=== PATIENT | female | born 1940 | race Caucasian/White ===

== ENCOUNTER 2022-03-01 07:15 | Day surgery (SDC) | payer MEDICARE, OTHER ==
[~2022-03-01] VITALS: Ht 162.6 cm; Wt 70.5 kg
[~2022-03-01 07:15] MED LIST: B-100 COMPLEX100 MG PO; BISOPROLOL FUMAR5 MG PO; CALCIUM 600 MG1 EA10 PO; COSOPT EYE DROP10 ML OD; DICLOFENAC SOD100 G1 TOP; FISH OIL 1,001000 MG PO; FLAXSEED OIL1000 M1 PO; LATANOPROST2.5 ML OPTH; LIPITOR10 MG PO; LOSARTAN-HCTZ1 EACH PO; MAGNESIUM250 M1 PO; TIMOLOL MALEATE5 M2 OP; VITAMIN B-121000 MC4 SL; VITAMIN C 500500 M1 PO; VITAMIN D350 MC3 PO
--- NOTE | 2022-03-01 08:38 | NUR ---
PT ALERT, ORIENTED AND SUPPORTED BY HER G.DAUGHTER USAMA. PT IS PLEASANT, SEEMS PREPARED. USAMA WITH REMAIN FOR DC. PT REQUESTED PRAYER, WILL FOLLOW
[2022-03-01] MEDS ORDERED: DORZOLAMIDE 2%10 ML OP (09:03)
--- NOTE | 2022-03-01 10:20 | NUR ---
03/01/22 Edouard0 Shannan Ugarte 1016- PT ARRIVES TO PACU NONAROUSABLE TO STIMULI. RESP EVEN AND UNLABORED. OXYGEN SAT MID TO HIGH 90'S ON 2L VIA NC. PT'S RIGHT HAND ELEVATED AND ICE PACK APPLIED.
[2022-03-01] MEDS ORDERED: TRAMADOL HCL50 MG PO (10:34)
--- NOTE | 2022-03-04 07:05 | OR ---
[facility] [address], [place] [address] Signed DATE OF OPERATION: 03/01/2022 SURGEON: Leilani Woodruff MD PREOPERATIVE DIAGNOSIS: Carpal tunnel syndrome, right. POSTOPERATIVE DIAGNOSIS: Carpal tunnel syndrome, right. PROCEDURE PERFORMED: Carpal tunnel release, right. SHELLFISH DREDGE OPERATOR: None. ANESTHESIA: Jovan block. TOURNIQUET TIME: 14 minutes. BRIEF HISTORY: Valerie is an 81-year-old female with progressive worsening of carpal tunnel type symptoms, this was confirmed with nerve conduction studies. Risks and benefits of the operative treatment discussed with her and she elected to proceed. DESCRIPTION OF PROCEDURE: Once consent was obtained, she was taken to the operating room. After adequate anesthesia, she was left on the day surgery bed, hand table was brought in. The arm was prepped and draped in a standard sterile fashion after [place] block was established. The carpal tunnel was approached through a 1.5 cm incision in the distal wrist crease, carried through the skin and subcutaneous tissue. No palmaris longus was identified. The transverse carpal ligament was dissected free of overlying soft tissue and was released proximally a centimeter. There was a small motor branch that was preserved and protected. The transverse carpal ligament was then dissected and released distally. It was quite thickened in the midportion being approximately 5-6 mm thick at its thickest point. This was palpated using a [place] and found to be completely released. The wound was copiously irrigated with normal saline, closed with 3-0 nylon. The operative site was injected with 7 mL of 0.25% Marcaine. The wound was dressed with bacitracin, Electronically Signed By: LEILANI WOODRUFF MD 03/04/22 0705 PATIENT NAME: VALERIE SAHU OPERATIVE REPORT DATE OF : 42 REPORT #: [id number] PHYSICIAN: LEILANI WOODRUFF MD PCP: DEBORAH COLEMAN MD REPORT IS CONFIDENTIAL AND NOT TO BE RELEASED WITHOUT AUTHORIZATION [facility] [address] [place] [address] [place], [place] [address] Signed Adaptic, 4 x 8's, and gauze. She tolerated the procedure well. All sponge, needle, and instrument counts were correct. Leilani Woodruff MD BA/MODL /[id number] Copies: ~ Electronically Signed By: LEILANI WOODRUFF MD 03/04/22 0705 PATIENT NAME: VALERIE SAHU OPERATIVE REPORT DATE OF : [birth year] REPORT #: [id number] PHYSICIAN: LEILANI WOODRUFF MD PCP: DEBORAH COLEMAN MD REPORT IS CONFIDENTIAL AND NOT TO BE RELEASED WITHOUT AUTHORIZATION
== END 2022-03-01 11:24 | disposition home or self-care (01) ==
LOC: DS 07:15
PROVIDERS: ATTEND Specialist
PROC: 01N50ZZ Release Median Nerve, Open Approach (ICD-10-PCS; principal; 2022-03-01 09:55)
DX: G56.01 Carpal tunnel syndrome, right upper limb (principal)
CPT/HCPCS: J0690; J2001; J2250; J2704; J7121

== ENCOUNTER 2023-01-01 14:41 | Emergency (ER) | payer MEDICARE, OTHER ==
[~2023-01-01] VITALS: Ht 162.6 cm; Wt 69.5 kg
[~2023-01-01 14:41] MED LIST changes: +DORZOLAMIDE 2%10 ML OP; +TRAMADOL HCL50 MG PO
== END 2023-01-01 17:17 | disposition home or self-care (01) ==
LOC: ED 14:41
DX: R41.0 Disorientation, unspecified (principal); I10 Essential (primary) hypertension; Z88.0 Allergy status to penicillin; Z79.899 Other long term (current) drug therapy
CPT/HCPCS: 36415; 70450; 80053; 81001; 84484; 85025; 99285-25

== ENCOUNTER 2024-09-23 12:05 | Inpatient (IN) | payer MEDICARE, OTHER ==
[~2024-09-23] VITALS: Ht 162.6 cm; Wt 66.4 kg
[~2024-09-23 12:05] MED LIST changes: -LATANOPROST2.5 ML OPTH; +LATANOPROST2.5 ML OS
[2024-09-23] MEDS ORDERED: ondansetron HCL 4 MG/2 ML VIAL IV ONE (13:30)
[2024-09-23 13:39] LABS: BASOPHILS 0.4 % (0-2); HEMATOCRIT 43.3 % (35.0-50.0); HEMOGLOBIN 14.3 g/dL (12.0-18.0); MCH 29.5 (27-36); MCV 89.6 fl (81-99); MONOCYTES 9.4 % (0-12); NEUTROPHILS 82.2 % (39-80); PLATELET COUNT 202 K/uL (140-440); RBC 4.83 M/ul (4.3-5.7); RDW 13.3 (10.5-15.0)
[2024-09-23 13:58] LABS: ALBUMIN 3.5 g/dL (3.4-5.0); ALBUMIN/GLOBULIN RATIO 0.9 (1.1-2.4); ANION GAP 14.2 (7-21); BILIRUBIN, TOTAL 0.7 ng/dL (0.2-1.0); BUN/CREATININE RATIO 13.76 (6.0-28.6); CALCIUM 9.8 mg/dL (8.5-10.1); CREATININE, SERUM 1.09 mg/dL (0.55-1.02); POTASSIUM 3.2 mmol/L (3.5-5.1); PROTEIN, TOTAL 7.4 g/dL (6.4-8.2)
[2024-09-23] MEDS ORDERED: SODIUM CHLORIDE 0.9% 1,000 ML IV ONE (14:00)
[2024-09-23] MEDS ORDERED: metroNIDAZOLE/SODIUM CHLORIDE 500 MG/100 ML PIGGYBACK IV ONE (15:00)
[2024-09-23] MEDS ORDERED: CEFEPIME HCL/D5W 2 GM/100 ML PIGGYBACK IV ONE (15:00)
[2024-09-23 15:05] LABS: BILIRUBIN, URINE NEGATIVE (negative); BLOOD/HGB, URINE TRACE-I (Negative); KETONE, URINE SMALL (Negative); LEUK ESTERASE, URINE SMALL (negative); NITRITE, URINE NEGATIVE (negative); PH, URINE 5.5 (5-7)
[2024-09-23 15:14] LABS: BACTERIA, URINE 2+ /hpf (negative); CASTS, URINE NONE SEEN \\lpf; COLLECTION TYPE, URINE CLEAN CATCH; CRYSTALS, URINE NONE SEEN (0-1+); EPITHELIAL CELLS, URINE SQUAMOUS 3+ /lpf (0-1+); RED BLOOD CELLS, URINE 0-1 /hpf (0-5); REFLEX CULTURE, URINE No (No); WHITE BLOOD CELLS, URINE >50 /HPF (0-5)
--- NOTE | 2024-09-23 16:16 | NUR ---
REPORT RECEIVED FROM SENA ROGERS IN THE ER. PT IS TRANSPORTED VIA STRETCHER TO MED/SURG FLOOR AND TRANSFERS HERSELF INTO THE BED AT THIS TIME. VS AND WT OBTAINED AND RECORDED. IV FLUSHES WNL, IV ABX INFUSING AT THIS TIME. CALL LIGHT IN REACH.
[2024-09-23 16:19] VITALS: BP 142/54; BP 152/54
[2024-09-23] MEDS ORDERED: SEVOFLURANE 250 ML BTL INH ONE (16:21)
--- NOTE | 2024-09-23 16:30 | NUR ---
MD IN ROOM WITH PATIENT DISCUSSING CONSENT AND SURGICAL PROCEDURE.
[2024-09-23] MEDS ORDERED: PROCHLORPERAZINE EDISYLATE 10 MG/2 ML VIAL IV PRN (16:45)
[2024-09-23] MEDS ORDERED: ondansetron HCL 4 MG/2 ML VIAL IV PRN ×3 (16:45→19:00)
[2024-09-23] MEDS ORDERED: PANTOPRAZOLE SODIUM 40 MG/10 ML VIAL IV SCH (16:45)
[2024-09-23] MEDS ORDERED: HYDROmorphone HCL 1 MG/ML SYR IV PRN ×2 (16:45→17:00)
--- NOTE | 2024-09-23 16:45 | NUR ---
PATIENT ALERT AND ORIENTED TO PERSON PLACE, TIME AND LOCATIONS. PATIENT WITH C/O PAIN TO RLQ. REPORTS PAIN IS " OKAY AT THIS TIME." RATES PAIN 5/10. LUNGS CTA, HEART TONES REGUALR.BILATERAL PULSES STRONG TO UPPER AND LOWER EXTREMITIES. PATIENT BOWEL TONES HYPOACTIVE. ABD SLIGHTLY DISTENDED, TENDER TO TOUCH. REPORTS LAST BM WAS 09/22/24. ADMISSION COMPLETED.
[2024-09-23] MEDS ORDERED: ENOXAPARIN SODIUM 40 MG/0.4 ML SYR SUB-Q SCH (16:46)
--- NOTE | 2024-09-23 16:56 | NUR ---
JUST GOT DONE DOING A SURGICAL WIPE DOWN ON PATIENT. NEW GOWN AND SOCKS AND SCDS ON.
[2024-09-23] MEDS ORDERED: ACETAMINOPHEN 325 MG TAB PO PRN (17:00)
[2024-09-23] MEDS ORDERED: LACTATED RINGER'S 1,000 ML IV SCH ×2 (17:00)
[2024-09-23] MEDS ORDERED: ATORVASTATIN CA20 MG PO (17:07)
[2024-09-23] MEDS ORDERED: DORZOLAMIDE-TIM10 ML OS (17:08)
[2024-09-23] MEDS ORDERED: LIDOCAINE HCL 1% 30 ML SDV ONE (17:24)
[2024-09-23] MEDS ORDERED: propofoL 200 MG/20 ML VIAL ONE (17:24)
[2024-09-23] MEDS ORDERED: ondansetron HCL 4 MG/2 ML VIAL ONE ×2 (17:24→18:30)
[2024-09-23] MEDS ORDERED: ROCURONIUM BROMIDE 50 MG/5 ML SYR ONE (17:24)
[2024-09-23] MEDS ORDERED: LIDOCAINE HCL 2% 5 ML SDV ONE (17:24)
--- NOTE | 2024-09-23 17:26 | NUR ---
OR NURSE ON UNIT TO TAKE PATIENT TO PREOP.
[2024-09-23] MEDS ORDERED: fentaNYL citrate 100 MCG/2 ML VIAL ONE (17:28)
[2024-09-23] MEDS ORDERED: ACETAMINOPHEN 1,000 MG/100 ML VIAL ONE (17:39)
[2024-09-23] MEDS ORDERED: SODIUM CHLORIDE 0.9% 20 ML IV ONE (17:42)
[2024-09-23] MEDS ORDERED: ePHEDrine sulfate 50 MG/ML AMP ONE (17:42)
[2024-09-23] MEDS ORDERED: SUGAMMADEX SODIUM 200 MG/2 ML ML ONE (18:22)
[2024-09-23] MEDS ORDERED: DEXAMETHASONE SOD PHOS 4 MG/ML VIAL ONE (18:30)
--- NOTE | 2024-09-23 18:54 | NUR ---
09/23/241853 Lydia Orozco 1846-PT ARRIVES TO PACU RESTING SUPINE, PT NOT RESPONSIVE TO NOXIOUS STIMULI, VSS ON 6L VIA MASK, OPA IN PLACE, RR EVEN AND UNLABORED.
[2024-09-23] MEDS ORDERED: DEXTROSE 5% - LACTATED RINGERS 1,000 ML IV SCH (19:00)
[2024-09-23] MEDS ORDERED: IBLOOD GLUCOSE TEST STRIP 1 EA TEST VI PRN (19:00)
[2024-09-23] MEDS ORDERED: NALOXONE HCL 0.4 MG SYR IV PRN (19:00)
[2024-09-23] MEDS ORDERED: fentaNYL citrate 50 MCG/ML SDV IV PRN (19:00)
[2024-09-23] MEDS ORDERED: OXYCODONE HCL 5 MG TAB PO PRN (19:00)
--- NOTE | 2024-09-23 19:05 | NUR ---
REPORT RECEIVED FROM FARZANA SHETTY. pt STILL IN PACU AT THIS TIME. BOARD UPDATED.
[2024-09-23 19:24] VITALS: BP 127/57
--- NOTE | 2024-09-23 19:30 | NUR ---
pt ARRIVED TO THE FLOOR VIA STRETCHER. REPORT RECEIVED FROM SABRINA SHETTY. pt RESTING COMFORTABLY IN THE BED. pt DENIES ANY PAIN AT THIS TIME. VSS. LAP SITES X3 DRY AND INTACT. WATER REFRESHED. pt DENIES ANY NEEDS AT THIS TIME. CALL LIGHT WITHIN REACH.
[2024-09-23] MEDS ORDERED: METOPROLOL TARTRATE 5 MG/5 ML VIAL IV SCH (20:00)
[2024-09-23 20:44] VITALS: BP 121/72
--- NOTE | 2024-09-23 20:48 | NUR ---
post-op vss, pt awake and resting in bed. on ra, rr even and unlabored, no distress noted. pt and visitor denies needs or concerns. call light in reach.
[2024-09-23 21:29] VITALS: BP 131/54
--- NOTE | 2024-09-23 21:30 | NUR ---
POST OP VS DONE. pt STILL DENIES ANY NEEDS AND PAIN AT THIS TIME. ICE PACK PROVIDED FOR pt. CALL LIGHT WITHIN REACH.
[2024-09-23 22:29] VITALS: BP 126/59
--- NOTE | 2024-09-23 22:30 | NUR ---
ASSESSMENT AND VITAL SIGNS DONE. pt BOOSTED IN THE BED. CPOX ON. SCD'S ON. pt DENIES ANY PAIN OR NEEDS AT THIS TIME. CALL LIGHT WITHIN REACH. NO OTHER NEEDS AT THIS TIME.
[2024-09-23 22:57] VITALS: BP 126/59
[2024-09-24] VITALS (9 sets, daily range): BP systolic 112–149; BP diastolic 55–78
--- NOTE | 2024-09-24 00:56 | NUR ---
pt RESTING IN THE BED WITH EYES CLOSED. RR EVEN AND UNLABORED. CALL LIGHT WITHIN REACH.
--- NOTE | 2024-09-24 01:45 | NUR ---
ASSESSMENT AND VITAL SIGNS DONE. pt SBA TO THE BSC. PRN AND SCHEDULED MEDS ADMINISTERED. pt DENIES ANY OTHER NEEDS AT THIS TIME. CALL LIGHT WITHIN REACH. JELLO PROVIDED. WATER REFRESHED.
--- NOTE | 2024-09-24 03:50 | NUR ---
pt RESTING IN THE BED. pt IV BEEPING. NEW IVF BAG HUNG. pt DENIES ANY NEEDS AT THIS TIME. CALL LIGHT WITHIN REACH.
--- NOTE | 2024-09-24 05:30 | NUR ---
pt CALLED TO GO TO THE BR. pt SBA TO THE BR WITH IV POLE. VITAL SIGNS AND ASSESSMENT DONE. ICE PACK PROVIDED. PRN PAIN MEDS ADMINISTERED. pt DENIES ANY OTHER NEEDS AT THIS TIME. CALL LIGHT WITHIN REACH.
[2024-09-24 05:46] LABS: BASOPHILS 0.7 % (0-2); HEMATOCRIT 39.1 % (35.0-50.0); LYMPHOCYTES 6.6 % (24-44); MCH 29.6 (27-36); MCHC 33.2 g/dl (30-36); MONOCYTES 6.1 % (0-12); NEUTROPHILS 86.6 % (39-80); PLATELET COUNT 171 K/uL (140-440); RBC 4.39 M/ul (4.3-5.7); RDW 13.6 (10.5-15.0)
[2024-09-24 06:01] LABS: ANION GAP 11.3 (7-21); BUN/CREATININE RATIO 12.26 (6.0-28.6); CALCIUM 8.8 mg/dL (8.5-10.1); CREATININE, SERUM 1.06 mg/dL (0.55-1.02); MAGNESIUM 1.8 mg/dL (1.8-2.4); PHOSPHORUS, INORGANIC 2.3 mg/dL (2.5-4.9); POTASSIUM 3.3 mmol/L (3.5-5.1)
--- NOTE | 2024-09-24 07:00 | OR ---
[facility] [address], [place] [address] Signed DATE OF OPERATION: 09/23/2024 SURGEON: Lissett Nichols MD PREOPERATIVE DIAGNOSIS: Acute appendicitis. POSTOPERATIVE DIAGNOSIS: Necrotic appendicitis. OPERATIVE PROCEDURE: Laparoscopic appendectomy. ESTIMATED BLOOD LOSS: None. INDICATIONS: Valerie is an 83-year-old female who for two days now has had increasing right lower quadrant abdominal pain. She finally came to the emergency room for evaluation. Vital signs are stable. She is tender in the right lower quadrant. White count is elevated. CT scan and pelvis confirmed her appendicitis with a fecalith and some mild periappendiceal stranding. She has cholelithiasis and also had a right adnexal cyst about 7.1 x 5.1 cm. The pelvic ultrasound confirmed an 8.6 cm cyst with a 1.5 cm mural nodule. Of course, it was recommended that Ness follow up with our garment manufacturing supervisor. I did talk with our garment manufacturing supervisor, Dr. KEMI Damon, on-call and he is extremely busy tonight with a delivery as well as a ruptured ectopic . He will be seeing her in due time in the clinic. In the meantime, she had received cefepime and Flagyl, was admitted to my service. I met with Valerie in the hospital. We discussed the location of function of the appendix relative to her above findings. We discussed laparoscopic versus open appendectomy. She is very aware of the right ovarian cyst. She understands that we need to take care of infection first and she can deal with the ovarian cyst later. She understands expected intraop and postop course. There is risk including, but not limited to bleeding, infection, scarring, change in contour of the skin, damage to bowel, appendiceal stump leak, postoperative intraabdominal abscess, incisional hernias and other unforeseen comorbidities. She had expressed understanding and wished to proceed. DESCRIPTION OF PROCEDURE: Valerie was taken into our operating room and placed in the supine position under general endotracheal tube anesthesia. She was already on preoperative cefepime and Flagyl along Electronically Signed By: LISSETT NICHOLS MD 09/24/24 0700 PATIENT NAME: VALERIE SAHU OPERATIVE REPORT DATE OF : 42 REPORT #: [id number] PHYSICIAN: LISSETT NICHOLS MD PCP: AZIZA TRAN MD REPORT IS CONFIDENTIAL AND NOT TO BE RELEASED WITHOUT AUTHORIZATION [facility] [address], [place] [address] Signed with subcutaneous Lovenox. SCDs were utilized. A Pantoja catheter was inserted with return of clear yellow urine without difficulty. She was prepped and draped in the usual sterile fashion. Our trocars were placed in their standard positions under direct visualization of camera without difficulty. It took just a minute to bluntly sweep the terminal ileum away from the appendix. We cleared off the base of the appendix bluntly and with the cautery. The linear stapler was used to divide the appendix from the cecum. We then used our vascular load on the mesoappendix to separate the appendix completely. There was good hemostasis on both staple lines. The appendix was placed into an EndoCatch bag and taken out through the right subcostal trocar site. We briefly examined the right lower quadrant and we pushed the bowel side and we never did see this right ovarian adnexal mass. After this, we used our laparoscopic suturing device to pass 0-Vicryl suture x2 on either side of the fascia of the right subcostal trocar site. These were tied down to close this fascia primarily. After this, the gas was allowed to escape and her remaining two trocars were removed. We closed the fascia of the supraumbilical trocar site with interrupted afpaoo-wm-oesow and simple 0-Vicryl sutures. Local anesthetic was injected into all three trocar sites. Each trocar site was irrigated and suctioned out until clear. We closed the skin and dermis of each trocar site with interrupted 3-0 subcuticular Monocryl sutures. Dry gauze and tape was applied to all three incisions. Her Pantoja catheter was removed without difficulty. She was awakened from anesthesia, extubated in the OR, and taken to recovery room in stable condition. Lissett Nichols MD ALB/MODL /[id number] cc: Aziza Tran MD Patient chart MD Arsalan Thrasher DO Electronically Signed By: LISSETT NICHOLS MD 09/24/24 0700 PATIENT NAME: VALERIE SAHU OPERATIVE REPORT DATE OF : 42 REPORT #: [id number] PHYSICIAN: LISSETT NICHOLS MD PCP: AZIZA TRAN MD REPORT IS CONFIDENTIAL AND NOT TO BE RELEASED WITHOUT AUTHORIZATION [address] [address] Signed Copies: AZIZA TRAN MD, ANDREW L MD WARD, JAMES (KEMI) DO ~ Electronically Signed By: LISSETT NICHOLS MD 09/24/24 0700 PATIENT NAME: VALERIE SAHU OPERATIVE REPORT DATE OF : 42 REPORT #: [id number] PHYSICIAN: LISSETT NICHOLS MD PCP: AZIZA TRAN MD REPORT IS CONFIDENTIAL AND NOT TO BE RELEASED WITHOUT AUTHORIZATION
--- NOTE | 2024-09-24 07:00 | CONS ---
[facility] [address], [place] [address] Signed DATE OF CONSULTATION: 09/23/2024 CHIEF COMPLAINT: Right lower quadrant abdominal pain. HISTORY OF PRESENT ILLNESS: Valerie is an 83-year-old female who still lives at home with her . She is very independent and at her ideal body weight. She still drives around town. Two days ago, she started to develop right lower quadrant abdominal pain. It is getting progressively worse. She finally came to the emergency room for evaluation. She is tender in the right lower quadrant with stable vital signs. White count was elevated. A CT scan of abdomen and pelvis shows her thickened inflamed appendix with an appendicolith with some mild periappendiceal stranding. She also has cholelithiasis and right adnexal cyst about 7.1 x 5.1 cm. An ultrasound was done. She has an 8.6 cm cyst with a mural nodule about 1.5 cm. I have been asked to admit her as a general surgeon on-call. In the meantime, she received cefepime and Flagyl. Her is not here in the hospital currently, but her granddaughter is a nurse and headed here from about an hour away. PAST MEDICAL HISTORY: Hypertension, glaucoma, and hypercholesterolemia. PAST SURGICAL HISTORY: None. SOCIAL HISTORY: She does not smoke or drink. Dr. Tran is her primary care provider. She prefers the [facility]. Her is Torin at [phone]. They have a house and she drives. She had two children and one has . Her other child lives out on the [facility] about 5 hours away. FAMILY HISTORY: None. REVIEW OF SYSTEMS: She had 10 systems reviewed and there were no new findings. ALLERGIES: Penicillin causes hives. MEDICATIONS: Latanoprost eyedrops, timolol eye drops, fish oil, flaxseed oil, vitamin C, vitamin B12, magnesium, calcium, vitamin D, atorvastatin, bisoprolol, losartan, hydrochlorothiazide, diclofenac, dorzolamide eye drops. Electronically Signed By: LISSETT NICHOLS MD 09/24/24 0700 PATIENT NAME: VALERIE SAHU CONSULTATION DATE OF : 42 REPORT #: [id number] PHYSICIAN: LISSETT NICHOLS MD PCP: AZIZA TRAN MD REPORT IS CONFIDENTIAL AND NOT TO BE RELEASED WITHOUT AUTHORIZATION [facility] [address], [place] [address] Signed PHYSICAL EXAMINATION: VITAL SIGNS: Blood pressure is 133/60, heart rate 70, and respiratory rate 18, temperature 98.7. She is 94% to 100% on room air. She is 5 feet 4 inches and 66 kg with a body mass index 25. GENERAL: Valerie is an 83-year-old female who appears healthy and at her stated age. She is quite bright and very cooperative. She is in no acute distress. She does not appear to be systemically ill or toxic. LUNGS: Clear to auscultation bilaterally. HEART: Regular rate and rhythm without murmurs. ABDOMEN: Soft, flat but she is tender in the right lower quadrant. I cannot palpate a mass. LABORATORY DATA: Her white blood count 15.7, hemoglobin 14, neutrophils 82. Potassium slightly low at 3.2, but creatinine 1.09. Liver function tests are negative. Albumin is 3.5, lipase is 22. RADIOGRAPHIC STUDIES: CT scan of abdomen and pelvis is reviewed and you can see her cholelithiasis along with the stone in the appendix. The appendix is little thickened. There is some mild periappendiceal stranding and then down further in the pelvis you can see the right adnexal cyst. The ultrasound confirms a right adnexal cyst with a 1.5 cm mural nodule. ASSESSMENT AND PLAN: Valerie is an 83-year-old female who presents with acute appendicitis. I explained to Valerie the above findings. We reviewed the location of function of the appendix. We discussed laparoscopic versus open appendectomy. She understands expected intraop and postop course. There is risk of surgery including, but not limited to bleeding, infection, scarring, change in contour of the skin, damage to bowel, appendiceal stump leak, postoperative intraabdominal abscess, incisional hernias and other unforeseen comorbidities. In addition, she is aware of this right adnexal cyst. Our on-call coremaker supervisor, Dr. KEMI Damon, is aware of the cyst as well. Unfortunately, he is involved with a delivery right now and not able to assess the patient. Nevertheless, it is vance to go ahead and remove the appendix and the cyst, the ovarian cyst can be dealt with at a later time. I have reviewed this with Valerie. She has expressed understanding and agrees above plan. Lissett Nichols MD Electronically Signed By: LISSETT NICHOLS MD 09/24/24 0700 PATIENT NAME: VALERIE SAHU CONSULTATION DATE OF : 42 REPORT #: [id number] PHYSICIAN: LISSETT NICHOLS MD PCP: AZIZA TRAN MD REPORT IS CONFIDENTIAL AND NOT TO BE RELEASED WITHOUT AUTHORIZATION [address] [place] [address] Signed ALB/MODL /[id number] cc: Aziza Tran MD Patient chart MD Arsalan Thrasher DO Copies: AZIZA TRAN MD, ANDREW L MD WARD, JAMES (KEMI) ~ Electronically Signed By: LISSETT NICHOLS MD 09/24/24 0700 PATIENT NAME: VALERIE SAHU CONSULTATION DATE OF : 42 REPORT #: [id number] PHYSICIAN: LISSETT NICHOLS MD PCP: AZIZA TRAN MD REPORT IS CONFIDENTIAL AND NOT TO BE RELEASED WITHOUT AUTHORIZATION
--- NOTE | 2024-09-24 07:01 | NUR ---
Pt report received from SENA Stephens. Pt is resting supine in bed, awake A&O, television on, daughter in room. Pt denies any needs at this time. White board updated. Side rails up x4, call light in reach.
--- NOTE | 2024-09-24 07:08 | NUR ---
Dr. Galloway in with pt and removed dressings to abdomen.
[2024-09-24] MEDS ORDERED: POTASSIUM PHOSPHATE 30 MMOL in DEXTROSE 5% 500 ML IV ONE (07:15)
--- NOTE | 2024-09-24 07:28 | NUR ---
UR CLINICAL REVIEW: 2MN TRUPTI, MEETS INPT FOR ACUTE NECROTIC APPENDICITIS MEDICARE INPT 09/23/24 @ 1649 ORDER MATCHES REG NO AUTH REQUIRED PER MEDICARE RULES PLAN TO DC TO HOME.
[2024-09-24] MEDS ORDERED: CEFEPIME HCL/D5W 1 GM/100 ML PIGGYBACK IV SCH (08:00)
[2024-09-24] MEDS ORDERED: THERA TEARS15 ML OU (08:44)
[2024-09-24] MEDS ORDERED: COLACE100 MG PO (08:44)
--- NOTE | 2024-09-24 08:45 | NUR ---
MED REC COMPLETE
[2024-09-24] MEDS ORDERED: MAGNESIUM SULFATE 2 GM/50 ML BAG IV ONE (09:00)
[2024-09-24] MEDS ORDERED: PANTOPRAZOLE SODIUM 40 MG TABEC PO SCH (09:00)
[2024-09-24] MEDS ORDERED: CEFEPIME HCL/D5W 2 GM/100 ML PIGGYBACK IV SCH (09:00)
[2024-09-24] MEDS ORDERED: metroNIDAZOLE/SODIUM CHLORIDE 500 MG/100 ML PIGGYBACK IV SCH (09:00)
[2024-09-24] MEDS ORDERED: DOCUSATE SODIUM 100 MG CAP PO SCH (09:00)
[2024-09-24] MEDS ORDERED: POLYETHYLENE GLYCOL 3350 1 PACKET PO SCH (09:00)
--- NOTE | 2024-09-24 10:27 | NUR ---
TAKING OFF RT SERVICE. PLEASE CALL IF RT CONCERNS OR O2 USE.
--- NOTE | 2024-09-24 11:45 | NUR ---
PC to pharmacy, spoke with Kris. Advised that K+Phos is not compatible with MgSO4. 2nd IV site obtained in left wrist, first attempt successful, pt tolerated well, good blood return, flushes well, no leaking, redness, swelling noted, no c/o pain or discomfort. IV MgSO4 on IVP at ordered rate per emar. Will run K+phos after its completion. IV ABX in original IV site, not compatible with Mg or K+.
--- NOTE | 2024-09-24 12:04 | EKG ---
[facility] [address] [facility] [place], [place] [address] Signed Normal sinus rhythm Possible Left atrial enlargement Septal infarct , age undetermined Abnormal ECG No previous ECGs available Confirmed by Gail Gandhi MD ([id number]) on 09/24/2024 12:04:51 PM Electronically Signed By: GAIL GANDHI 09/24/24 1204 PATIENT NAME: LESIA SAHU Electrocardiogram DATE OF : 42 PHYSICIAN: GAIL GANDHI REPORT #: [id number] REPORT IS CONFIDENTIAL AND NOT TO BE RELEASED WITHOUT AUTHORIZATION
--- NOTE | 2024-09-24 13:04 | NUR ---
PATIENT ALERT AND ORIENTED IN BED. GRANDDAUGHTER AT BEDSIDE. PATIENT LIVES IN SINGLE LEVEL HOME WITH 2-3 STEPS TO GET INSIDE, WITH HER . SHE USES STEPS WITHOUT DIFFICULTY. PATIENT HAS NO DME. SHE DRIVES AT [place]. NO FINANCIAL CONCERNS. UTILITIES ARE PAID. SHE IS ABLE TO PAY FOR HER FOOD AND MEDICATION WITHOUT DIFFICULTIES. GRANDDAUGHTER ASKS IF PATIENT WILL QUALIFY FOR HOME HEALTH. INFORMED HER PATIENT IS ABLE TO LEAVE HOME, SO SHE DOES NOT QUALIFY. CONCERNED ABOUT PATIENT BEING ABLE TO CARE FOR SELF AT HOME FOR A FEW DAYS. PATIENT STATES SHE WILL BE FINE. CURRENTLY SHE IS ABLE TO GET UP AND MOVE AROUND HER ROOM WITH MINIMAL ASSISTANCE. PATIENT CURRENTLY DENIES CM NEEDS AND PLANS TO RETURN HOME WITH HER AT DISCHARGE.
--- NOTE | 2024-09-24 16:13 | NUR ---
Pt's granddaughter advised that the pt is feeling "loopy" and suggested she only take tylenol for pain or discomfort. She states that the pt reports increased pain with movement still, but feels loopy, so she thinks it would be better for her not to take oxycodone. Pt currently reports her pain is 5 out of 10 in her RLQ that radiates to her left side also. Pain does settle when she stops moving around. IVF running on pumps. Pt medicated with PO Tylenol at this time. IV cefepime, IV K+Phos running on separate pumps into separate IV sites. Pt has no c/o pain, no swelling or leaking noted at sites. No redness. Warm blanket and iced water provided at pt's request. Encouraged pt to use call light if she needs anything. Also discussed pt showering after dinner if she is feeling less woozy.
--- NOTE | 2024-09-24 16:22 | NUR ---
Last notes from Dr. Tran's office requested today. Also, pharmacist, Ceasar, reviewed pt's med list this shift.
--- NOTE | 2024-09-24 17:38 | NUR ---
RESPONDED TO CALL LIGHT, UPON ENTERING THE ROOM, PT GRANDDAUGHTER NOTIFIED ME THAT PT WAS STANDING WHEN SHE CAME IN THE ROOM WITH WATER SPILLED ON THE FLOOR AND PT STATING SHE WAS CONFUSED. CLEANED UP SPILL AND GOT PT BACK TO BED. SET BED ALARM FOR PT SAFETY. PT STATED NO FURTHER NEEDS AT THIS TIME. PERSONAL BELONGINGS AND CALL LIGHT ARE WITHIN REACH. NOTIFIED PRIMARY RNKEN.
--- NOTE | 2024-09-24 19:05 | NUR ---
REPORT RECEIVED FROM KEN SHETTY. pt RESTING IN THE BED. pt DENIES ANY OTHER NEEDS AT THIS TIME. CALL LIGHT WITHIN REACH.
--- NOTE | 2024-09-24 20:45 | NUR ---
ASSESSMENT AND VITAL SIGNS DONE. LAP SITES X3 CDI. pt RESTING IN THE BED. SCHEDULED MEDS ADMINISTERED. IV ABX INFUSING. IV ASSESSED, WNL. pt DENIES ANY NEEDS AT THIS TIME. CALL LIGHT WITHIN REACH. SCD'S ON.
--- NOTE | 2024-09-24 22:10 | NUR ---
pt STATES SHE IS FEELING NO PAIN AT THIS TIME. IV ABX INFUSING PER ORDER. pt DENIES ANY OTHER NEEDS AT THIS TIME. CALL LIGHT WITHIN REACH.
--- NOTE | 2024-09-24 23:29 | NUR ---
BED ALARM ANSWERED. PT SITTING AT EDGE OF BED STATING THE NEED TO USE BATHROOM. ASPHALT RAKER 1PA TO BATHROOM. PT VOIDED AND ASSISTED BACK TO BED. OUTOUT MEASURED. PT STATES NO FURTHER NEEDS AT THIS TIME. CALL LIGHT WITHIN REACH AND BED ALARM ON.
[2024-09-25] VITALS (9 sets, daily range): BP systolic 144–173; BP diastolic 54–86
--- NOTE | 2024-09-25 01:45 | NUR ---
IN RM TO ADMINISTER SCHEDULED MEDS AND PRN PAIN MEDS. pt UP TO THE BR. SBA. pt BACK TO BED. pt DENIES ANY OTHER NEEDS AT THIS TIME. CALL LIGHT WITHIN REACH. BED ALARM ON.
--- NOTE | 2024-09-25 04:17 | NUR ---
pt CALLED TO GO TO THE BR. SBA. INCISIONS CDI. pt DENIES ANY OTHER NEEDS AT THIS TIME. CALL LIGHT WITHIN REACH.
[2024-09-25 05:26] LABS: BASOPHILS 0.4 % (0-2); HEMATOCRIT 40.4 % (35.0-50.0); HEMOGLOBIN 13.7 g/dL (12.0-18.0); LYMPHOCYTES 8.1 % (24-44); MCH 30.1 (27-36); MCHC 33.9 g/dl (30-36); MCV 88.7 fl (81-99); MONOCYTES 4.9 % (0-12); NEUTROPHILS 86.6 % (39-80); PLATELET COUNT 172 K/uL (140-440); RBC 4.55 M/ul (4.3-5.7); RDW 13.3 (10.5-15.0)
[2024-09-25 05:47] LABS: ANION GAP 10.4 (7-21); BUN/CREATININE RATIO 6.93 (6.0-28.6); CALCIUM 8.4 mg/dL (8.5-10.1); CREATININE, SERUM 1.01 mg/dL (0.55-1.02); MAGNESIUM 1.8 mg/dL (1.8-2.4); PHOSPHORUS, INORGANIC 1.8 mg/dL (2.5-4.9); POTASSIUM 3.4 mmol/L (3.5-5.1)
--- NOTE | 2024-09-25 07:11 | NUR ---
REPORT RECEIVED. PT SITTING IN BED WATCHING TV. CALL LIGHT WITHIN REACH AND NO REQUESTS AT THIS TIME.
--- NOTE | 2024-09-25 09:35 | NUR ---
PT UP IN CHAIR EATING BREAKFAST. PT C/O PAIN TO ABD 01/06, TYLENOL GIVEN PER ORDER. CALL LIGHT WITHIN REACH, WARM BLANKETS ALSO GIVEN PER REQUEST.
[2024-09-25] MEDS ORDERED: hydroCHLOROthiazide 25 MG TAB PO SCH (09:41)
[2024-09-25] MEDS ORDERED: LOSARTAN POTASSIUM 50 MG TAB PO SCH (09:41)
[2024-09-25] MEDS ORDERED: POTASSIUM CHLORIDE 10 MEQ TABCR PO SCH (09:42)
[2024-09-25] MEDS ORDERED: MAGNESIUM OXIDE 400 MG TABLET PO SCH (09:42)
--- NOTE | 2024-09-25 09:50 | NUR ---
ASSESSMENT COMPLETE. PT USING IS HOURLY. NO REQUESTS AT THIS TIME, CALL LIGHT WITHIN REACH.
--- NOTE | 2024-09-25 10:44 | NUR ---
PATIENTUP TO BR WITH SBA. PATIENT TOLERATED WELL. PATIENT BACK IN CHAIR VISITING WITH . CALL LIGHT WITHIN REACH.
--- NOTE | 2024-09-25 11:16 | NUR ---
PT AMBULATED IN THE [place] ON THE UNIT X2. SBA. TOLERATED WELL. PT IS SITTING UP IN CHAIR WATCHING TV. PERSONAL BELONGINGS AND CALL LIGHT WITHIN REACH.
--- NOTE | 2024-09-25 12:50 | NUR ---
PATIENT UP TO BR WITH SBA, CALLING APPROPRIETLY ALL DAY. BACK TO CHAIR. PT AND THIS NEWSPAPER STUFFER TALKED ABOUT SHOWER A LITTLE LATER ON. PT OKAY WITH THIS. VITALS AND I/O'S COMPLETED. PT HAS NO OTHER REQUESTS AT THIS TIME. CALL LIGHT WITHIN REACH.
--- NOTE | 2024-09-25 14:08 | NUR ---
ASSISTED PT TO THE TOILET. ASSISTED PT TO BEDSIDE CHAIR. SBA. SUPPLIED PT A RIVETING MACHINE OPERATOR TAPE CONTROL FOR HER PHONE. PERSONAL BELONGINGS AND CALL LIGHT ARE WITHIN REACH. PT STATED NO FURTHER NEEDS AT THIS TIME.
--- NOTE | 2024-09-25 15:55 | NUR ---
PT ASSISTED TO SHOWER BY BACKUP ADMINISTRATOR, DAUGHTER IN ROOM.
[2024-09-25] MEDS ORDERED: CEFEPIME HCL/D5W 1 GM/100 ML PIGGYBACK ONE (16:31)
--- NOTE | 2024-09-25 16:55 | NUR ---
PT RESTING IN CHAIR WITH LEGS ELEVATED EATING DINNER. DAUGHTER IN ROOM, CALL LIGHT WITHIN REACH. NO REQUESTS AT THIS TIME.
[2024-09-25] MEDS ORDERED: SOD PHOS MONO/SOD PHOS DIBAS 250 MG TAB PO SCH (17:00)
--- NOTE | 2024-09-25 17:26 | NUR ---
PT ASSISTED TO RESTROOM BY SRUTHI RN, PT TOLERATED WELL HAD BM. PT BACK TO CHAIR, CALL LIGHT WITHIN REACH.
--- NOTE | 2024-09-25 18:38 | NUR ---
AMBULATED PT IN THE LOREN[place] ON THE UNIT X2. ASSISTED PT INTO BED AND ADJUSTED LIGHTING TO PT PREFERENCE. PERSONAL BELONGINGS AND CALL LIGHT ARE WITHIN REACH. PT STATED NO FURTHER NEEDS AT THIS TIME.
[2024-09-25] MEDS ORDERED: METOPROLOL SUCCINATE 100 MG TABCR PO SCH (21:00)
--- NOTE | 2024-09-26 03:17 | NUR ---
COT ASSEMBLER GAVE PT NEW LINES AND WARM BLANKETS DUE TO ICE PACK LEAKING. COT ASSEMBLER GAVE PT NEW ICE PACK.
[2024-09-26 05:21] LABS: BASOPHILS 1.1 % (0-2); EOSINOPHILS 0.9 % (0-6); HEMATOCRIT 37.2 % (35.0-50.0); HEMOGLOBIN 12.8 g/dL (12.0-18.0); LYMPHOCYTES 19.6 % (24-44); MCH 30.4 (27-36); MCHC 34.5 g/dl (30-36); MCV 88.1 fl (81-99); MONOCYTES 9.9 % (0-12); NEUTROPHILS 68.5 % (39-80); PLATELET COUNT 171 K/uL (140-440); RBC 4.22 M/ul (4.3-5.7); RDW 13.6 (10.5-15.0)
[2024-09-26 05:32] LABS: ANION GAP 7.1 (7-21); BUN/CREATININE RATIO 5.95 (6.0-28.6); CALCIUM 8.7 mg/dL (8.5-10.1); CREATININE, SERUM 0.84 mg/dL (0.55-1.02); MAGNESIUM 1.7 mg/dL (1.8-2.4); PHOSPHORUS, INORGANIC 1.9 mg/dL (2.5-4.9); POTASSIUM 3.1 mmol/L (3.5-5.1)
[2024-09-26 06:09] VITALS: BP 152/73
[2024-09-26 06:23] VITALS: BP 152/73
--- NOTE | 2024-09-26 06:24 | NUR ---
Used call light, up to BRp, 1PA/FWW, voided and had small bm. Back to bed, tolerated well, minimum of assist needed. abd soft, PAVAN, 3 lap sites CDI, well approx edges. abd slightly tender, softer upper abd than lower.no c/o pain at this time. IVf and abx infusing w/o problems, tolerating liquids well. family rooming in
--- NOTE | 2024-09-26 07:10 | NUR ---
In pt room for morning introductions. Pt is A&O x4, resting in bed, speaking with her daughter Claribel in the room. Pt denies pain or needs at this time. Daughter, Claribel, requested we ask Dr. Galloway to sign the pt's FMLA paperwork. Dr. Galloway advised that they need to take it to his office to have his MA review it before he can sign it. Both verbalized understanding and Claribel plans to do this tomorrow (Friday). Pt report received from SENA Kaur at about [address] Galloway in with pt at about 0740 hours. Assessments done at this time.
[2024-09-26] MEDS ORDERED: MAGNESIUM SULFATE 2 GM/50 ML BAG IV ONE (08:00)
[2024-09-26] MEDS ORDERED: levoFLOXacin 500 MG TAB PO SCH (08:15)
[2024-09-26] MEDS ORDERED: POTASSIUM PHOSPHATE 30 MMOL in DEXTROSE 5% 500 ML IV ONE (09:00)
[2024-09-26 09:16] VITALS: BP 143/66
--- NOTE | 2024-09-26 10:15 | DS ---
[facility] [address], [place] [address] Signed ADMISSION DATE: 09/23/2024 DISCHARGE DATE: 09/26/2024 FINAL DIAGNOSES: 1. Acute appendicitis. 2. Right ovarian cyst (8.6 cm) with 1.5 cm mural nodule. PROCEDURES: 1. CT scan of abdomen and pelvis. 2. Ultrasound of pelvis. 3. Laparoscopic appendectomy. HISTORY OF PRESENT ILLNESS: Valerie is an 83-year-old female who still lives at home with her Torin. She is still able to drive. She had developed at least two days of right lower quadrant abdominal pain. She came to the emergency room for evaluation. Her vital signs were fine. She was tender in the right lower quadrant. White blood cell count was elevated. The CT scan showed a cholelithiasis along with appendicolith and appendicitis with mild periappendiceal streaking. She also had a right adnexal cyst measuring 7.1 x 5.1 cm. An ultrasound was ordered and she has a right ovarian cyst measuring 8.6 cm with a 1.5 cm mural nodule. The radiologist recommended an MRI and follow up with Senior Telecommunications Engineer. Our supervisor receiving and processing, Dr. Rubens Damon, was extremely busy and not able to see her on this admission. Consequently, we will have her seen in followup in the office. HOSPITAL COURSE: Valerie was admitted as above. She was made n.p.o., started on IV fluids and antibiotics. I took her to the operating room that same day for uncomplicated laparoscopic appendectomy for what looks like a necrotic appendix. She had quite a bit inflammation on the small bowel surrounding the terminal ileum. Consequently, it took her a couple of days to resolve her ileus. She is now doing well on her soft diet. She has had multiple bowel movements. She suffers with constipation at home and has to use Colace. We gave her Colace and added some MiraLAX as well. I can see that she runs low on her electrolytes and she has various supplements at home. She ran low on potassium, phosphorus and magnesium during the hospital and they had to be replaced. We left her on cefepime and Flagyl for the hospital course. At this point, she has no nausea or vomiting. She has good bowel movements. Her abdomen is completely soft, mildly distended at baseline and no tympany and completely without tenderness. All the incisions are healing well. DISCHARGE PLANS AND MEDICATIONS: Valerie will go home with a prescription for oxycodone immediate release 5 mg tablets one Electronically Signed By: LISSETT NICHOLS MD 09/26/24 1015 PATIENT NAME: VALERIE SAHU DISCHARGE SUMMARY DATE OF : 42 REPORT #: [id number] PHYSICIAN: LISSETT NICHOLS MD PCP: AZIZA LO MD REPORT IS CONFIDENTIAL AND NOT TO BE RELEASED WITHOUT AUTHORIZATION [address] [address] Signed tablet p.o. q.8 hours p.r.n. for severe postoperative pain. We will dispense 15 tablets with no refills. Otherwise she can use Tylenol, ibuprofen or Aleve for [id number] postoperative pain. This can be purchased over the counter. We will give her Levaquin 500 mg one p.o. daily for five days without refills. She will have Flagyl 250 mg one p.o. t.i.d. for five days without refills. She can certainly use MiraLAX as needed for constipation. She can continue all her chronic home medications, which includes her Colace and her vitamin supplements. She is going to need follow up with her primary care provider in 7 to 14 days to follow up her lab work including the potassium, magnesium and phosphorus. We had her back on her chronic medications here in the hospital, she has done well with those. She will need followup with Dr. Rubens Damon in the next 2 to 4 weeks for the right ovarian cyst. I will see her in my office in the next 7 to 10 days for surgical followup. In the meantime, she will follow a regular diet. She can perform her activities of daily living including walking up and down stairs and showering and bathing as usual. I have asked her not to do any heavy pushing, pulling, or lifting over 20 pounds in particular with respect to her . [place] in the short run. She also has a granddaughter who lives about an hour away that can help as well. I have reviewed this with Valerie and her granddaughter along with our nurse. Valerie has expressed understanding and agrees above plan. Lissett Nicohls MD ALB/MODL /[id number] cc: MD Lissett Balderas MD Dr. J D Ward Copies: AZIZA LO MD Electronically Signed By: LISSETT NICHOLS MD 09/26/24 1015 PATIENT NAME: VALERIE SAHU DISCHARGE SUMMARY DATE OF : 42 REPORT #: [id number] PHYSICIAN: LISSETT NICHOLS MD PCP: AZIZA LO MD REPORT IS CONFIDENTIAL AND NOT TO BE RELEASED WITHOUT AUTHORIZATION [address] [address] Signed LISSETT NICHOLS MD ~ Electronically Signed By: LISSETT NICHOLS MD 09/26/24 1015 PATIENT NAME: VALERIE SAHU DISCHARGE SUMMARY DATE OF : 42 REPORT #: [id number] PHYSICIAN: LISSETT NICHOLS MD PCP: AZIZA LO MD REPORT IS CONFIDENTIAL AND NOT TO BE RELEASED WITHOUT AUTHORIZATION
--- NOTE | 2024-09-26 10:24 | NUR ---
IV POTASSIUM INFUSING FOR 6 HOURS. PATIENT REPORT NO PAIN AFTER HAVING TYLENOL. DAUGHTER IS IN ROOM WITH PATIENT.
[2024-09-26 11:12] VITALS: BP 143/66
[2024-09-26] MEDS ORDERED: metroNIDAZOLE 250 MG TAB PO SCH (12:00)
[2024-09-26 13:36] VITALS: BP 153/67
[2024-09-26] MEDS ORDERED: OXYCODONE HCL5 MG PO (13:45)
[2024-09-26] MEDS ORDERED: LEVOFLOXACIN500 MG PO (13:45)
[2024-09-26] MEDS ORDERED: TYLENOL325 MG PO (13:46)
[2024-09-26] MEDS ORDERED: METRONIDAZOLE250 MG PO (13:46)
[2024-09-26] MEDS ORDERED: MIRALAX17 GM PO (13:47)
== END 2024-09-26 14:10 | disposition home or self-care (01) | DRG 399 ==
LOC: ED 12:05 → MS 14:59
PROVIDERS: Emergency Medicine; ADMIT Colon & Rectal Surgery; ATTEND Colon & Rectal Surgery
PROC: 0DTJ4ZZ Resection of Appendix, Percutaneous Endoscopic Approach (ICD-10-PCS; principal; 2024-09-23 16:59)
DX: K35.891 Other acute appendicitis without perforation, with gangrene (principal); K80.20 Calculus of gallbladder without cholecystitis without obstruction; N83.201 Unspecified ovarian cyst, right side; I10 Essential (primary) hypertension; E78.00 Pure hypercholesterolemia, unspecified; E87.6 Hypokalemia; K59.09 Other constipation; E83.39 Other disorders of phosphorus metabolism; E83.42 Hypomagnesemia; H40.9 Unspecified glaucoma; Z88.0 Allergy status to penicillin; Z79.899 Other long term (current) drug therapy
CPT/HCPCS: 00840; 36415; 74177; 76830; 76856; 80048; 80053; 81001; 83690; 83735; 84100; 85025; 93005; 93010; 94762; 96375; 99285-25; A9270; J0131; J0692; J1100; J1650; J2003; J2405; J2470; J2704; J3010; J3475; J3490; J7030; J7060; J7121; Q9967

== ENCOUNTER 2024-10-01 15:56 | Emergency (ER) | payer MEDICARE, OTHER ==
[~2024-10-01] VITALS: Ht 162.6 cm; Wt 88.0 kg
[~2024-10-01 15:56] MED LIST changes: +ATORVASTATIN CA20 MG PO; +COLACE100 MG PO; +DORZOLAMIDE-TIM10 ML OS; +LEVOFLOXACIN500 MG PO; +METRONIDAZOLE250 MG PO; +MIRALAX17 GM PO; +OXYCODONE HCL5 MG PO; +THERA TEARS15 ML OU; +TYLENOL325 MG PO
--- OUTSIDE RECORDS SUMMARY | 2024-10-01 16:03 | XMS ---
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 Kevin has no Care Guidelines for this patient. Iggy VISIT COUNT (12 MO.) 2 [facility] [place] [facility]. TOTAL 2 NOTE: Visits indicate total known visits. [place] [place]12 [place] 10/01/2024 15:56 [facility] TYPE: Emergency COMPLAINT: - NUMBNESS 09/23/2024 12:06 [facility] TYPE: Emergency COMPLAINT: - ABD PAIN INPATIENT VISIT TRACKING (12 MO.) 09/23/2024 14:59 [facility] TYPE: Medical Surgical COMPLAINT: - APPENDICITIS DIAGNOSES: - Allergy status to penicillin - Calculus of gallbladder without cholecystitis without obstruction - Essential (primary) hypertension - Hypokalemia - Hypomagnesemia - Other acute appendicitis without perforation, with gangrene - Other constipation - Other disorders of phosphorus metabolism - Other fpc (current) drug therapy - Pure hypercholesterolemia, unspecified - Unspecified glaucoma - Unspecified ovarian cyst, right side [email or web address]
[2024-10-01] MEDS ORDERED: CENTRUM ADULTS1 EACH PO (16:25)
[2024-10-01 19:26] LABS: BASOPHILS 1.9 % (0-2); EOSINOPHILS 2.1 % (0-6); HEMOGLOBIN 13.6 g/dL (12.0-18.0); LYMPHOCYTES 19.2 % (24-44); MCH 29.2 (27-36); MCHC 33.2 g/dl (30-36); MONOCYTES 9.7 % (0-12); NEUTROPHILS 67.1 % (39-80); PLATELET COUNT 278 K/uL (140-440); RBC 4.66 M/ul (4.3-5.7); RDW 13.7 (10.5-15.0)
[2024-10-01 19:46] LABS: ALBUMIN 3.1 g/dL (3.4-5.0); ALBUMIN/GLOBULIN RATIO 0.94 (1.1-2.4); ANION GAP 9.3 (7-21); BILIRUBIN, TOTAL 0.5 ng/dL (0.2-1.0); BUN/CREATININE RATIO 9.16 (6.0-28.6); CALCIUM 10.1 mg/dL (8.5-10.1); CREATININE, SERUM 1.2 mg/dL (0.55-1.02); POTASSIUM 3.3 mmol/L (3.5-5.1); PROTEIN, TOTAL 6.4 g/dL (6.4-8.2)
[2024-10-01] MEDS ORDERED: ASPIRIN 325 MG TAB PO ONE (21:15)
[2024-10-01 21:33] VITALS: BP 147/61
== END 2024-10-01 21:30 | disposition home or self-care (01) ==
LOC: ED 15:56
PROVIDERS: Emergency Medicine
DX: R20.2 Paresthesia of skin (principal); I10 Essential (primary) hypertension; E11.9 Type 2 diabetes mellitus without complications; Z90.49 Acquired absence of other specified parts of digestive tract; Z88.0 Allergy status to penicillin; Z79.899 Other long term (current) drug therapy
CPT/HCPCS: 36415; 70450; 70496; 70498; 80053; 85025; 99284-25; Q9967